=== PATIENT | male | born 1980 ===

== ENCOUNTER 2018-09-28 06:30 | Day surgery (SDC) | payer BC ==
--- NOTE | 2018-09-27 15:03 | PCM.HPR ---
H & P Addendum review - H & P Addendum Review Date of Original H & P: 09/21/18 Date Reviewed: 09/28/18 Time Reviewed: 07:45 Patient was Examined: No Changes
[2018-09-28] MEDS ORDERED: Lactated Ringers 1,000 ML IV SCH (06:45)
[2018-09-28] MEDS ORDERED: Propofol 200 MG/20 ML SDV ONE (06:49)
[2018-09-28] MEDS ORDERED: fentaNYL 250 MCG/5 ML SDV ONE (06:49)
[2018-09-28] MEDS ORDERED: Midazolam 1 MG/ML 2 ML SDV ONE (06:49)
[2018-09-28] MEDS ORDERED: Dexamethasone 4 MG/ML 5 ML MDV ONE ×2 (06:50→06:56)
[2018-09-28] MEDS ORDERED: Ondansetron 4 MG/2 ML SDV ONE ×2 (06:50→06:56)
[2018-09-28] MEDS ORDERED: Rocuronium 10 MG/ML 10 ML Syringe ONE (06:55)
[2018-09-28] MEDS ORDERED: Succinylcholine 200 MG/10 ML MDV ONE (06:55)
--- NOTE | 2018-09-28 07:16 | PCM.PREANE ---
Preanesthetic Assessment - Anesthesia/Transfusion/Family Hx Anesthesia History: Prior Anesthesia Without Reaction Family History of Anesthesia Reaction: No Transfusion History: No Prior Transfusion(s) - Review of Systems General: No Symptoms Pulmonary: No Symptoms (mod FELICITA, uses CPAP) Cardiovascular: No Symptoms Gastrointestinal: No Symptoms Neurological: No Symptoms Other: Reports: None - Physical Assessment O2 Sat by Pulse Oximetry: 95 Respiratory Rate: 16 Vital Signs: Last Vital Signs Temp 98.8 F 09/28/18 07:13 Pulse 75 09/28/18 07:13 Resp 16 09/28/18 07:13 BP 134/79 09/28/18 07:13 Pulse Ox 95 09/28/18 07:13 Height: 5 ft 10 in Weight: 83.915 kg ASA Class: 2 Mental Status: Alert & Oriented x3 Airway Class: Mallampati = 1 Dentition: Reports: Normal Dentition ROM/Head Extension: Full Lungs: Clear to Auscultation, Normal Respiratory Effort Cardiovascular: Regular Rate, Regular Rhythm - Allergies Allergies/Adverse Reactions: Allergies Allergy/AdvReac Type Severity Reaction Status Date / Time cat dander Allergy Sneezing Verified 09/25/18 10:03 dog dander Allergy Sneezing Verified 09/25/18 10:03 Penicillins Allergy Hives Verified 09/25/18 10:03 - Blood Blood Available: No - Anesthesia Plan Pre-Op Medication Ordered: None - Acknowledgements Anesthesia Type Planned: General Anesthesia Pt an Appropriate Candidate for the Planned Anesthesia: Yes Alternatives and Risks of Anesthesia Discussed w Pt/Guardian: Yes Pt/Guardian Understands and Agrees with Anesthesia Plan: Yes PreAnesthesia Questionnaire HEENT History: Reports: Other (See Below) Other HEENT History: hx of fx nose Respiratory History: Reports: Sleep Apnea Other Respiratory History: uses CPAP Musculoskeletal History: Reports: Fracture Other Musculoskeletal History: hx of fx wrist Neurological History: Reports: Concussion - Past Surgical History HEENT Surgical History: Reports: Naso-Sinus Surgery Other HEENT Surgeries/Procedures: Septorhinoplasty - SUBSTANCE USE Smoking Status *Q: Current Every Day Smoker Tobacco Use Within Last Twelve Months: Smokeless Tobacco Recreational Drug Use History: No - HOME MEDS Home Medications: Home Meds . [No Known Home Meds] 09/25/18 [History] - CURRENT (IN HOUSE) MEDS Current Meds: Current Medications Lactated Ringer's (Ringers, Lactated) 1,000 mls @ 125 mls/hr IV ASDIRECTED ELENITA Discontinued Medications Dexamethasone (Dexamethasone) Confirm Administered Dose 20 mg .ROUTE .STK-MED ONE Stop: 09/28/18 06:51 Dexamethasone (Dexamethasone) Confirm Administered Dose 20 mg .ROUTE .STK-MED ONE Stop: 09/28/18 06:57 Fentanyl (Sublimaze) Confirm Administered Dose 250 mcg .ROUTE .STK-MED ONE Stop: 09/28/18 06:50 Lidocaine HCl (Xylocaine-Mpf 1%) Confirm Administered Dose 5 mls @ as directed .ROUTE .ST-MED ONE Stop: 09/28/18 06:51 Midazolam HCl (Versed 1 Mg/Ml) Confirm Administered Dose 2 mg .ROUTE .ST-MED ONE Stop: 09/28/18 06:50 Ondansetron HCl (Zofran) Confirm Administered Dose 4 mg .ROUTE .STK-MED ONE Stop: 09/28/18 06:51 Ondansetron HCl (Zofran) Confirm Administered Dose 4 mg .ROUTE .ST-MED ONE Stop: 09/28/18 06:57 Propofol (Diprivan 20 Ml) Confirm Administered Dose 200 mg .ROUTE .STK-MED ONE Stop: 09/28/18 06:[address] [place] (Zemuron) Confirm Administered Dose 100 mg .ROUTE .STK-MED ONE Stop: 09/28/18 06:56 Succinylcholine Chloride (Quelicin) Confirm Administered Dose 200 mg .ROUTE .STK -MED ONE Stop: 09/28/18 06:56
[2018-09-28] MEDS ORDERED: EPINEPHrine 1 MG/ML SDV ONE (07:24)
[2018-09-28] MEDS ORDERED: Oxymetazoline 0.05% Nasal Spray 15 ML Bottle ONE (07:24)
[2018-09-28] MEDS ORDERED: Lidocaine 2% with EPINEPHrine 1:100,000 20 ML MDV ONE (07:25)
[2018-09-28] MEDS ORDERED: Bupivacaine 0.25%/EPINEPHrine 1:200,000 10 ML SDV ONE (07:49)
[2018-09-28] MEDS ORDERED: Glycopyrrolate 0.2 MG/ML SDV ONE (08:47)
[2018-09-28] MEDS ORDERED: fentaNYL 100 MCG/2 ML SDV IVPUSH PRN (08:57)
[2018-09-28] MEDS ORDERED: Ibuprofen 400 MG Tab PO PRN (10:43)
[2018-09-28] MEDS ORDERED: Acetaminophen 1,000 MG in Premix Bag 1 BAG IV ONE (10:43)
[2018-09-28] MEDS ORDERED: oxyCODONE 5 MG Tab PO PRN (10:43)
--- NOTE | 2018-09-28 11:06 | PCM.POSTAN ---
POST ANESTHESIA ASSESSMENT - MENTAL STATUS Mental Status: Alert, Oriented - RESPIRATORY Respiratory Status: Respiratory Rate WNL, Airway Patent, O2 Saturation Stable - CARDIOVASCULAR CV Status: Pulse Rate WNL - GASTROINTESTINAL GI Status: No Symptoms - PAIN Pain Score: 4 - POST OP HYDRATION Hydration Status: Adequate & Stable - OBSERVATIONS Free Text/Narrative:: no anesthesia problems
--- NOTE | 2018-09-28 11:41 | PCM.OPNOTE ---
- General Post-Op/Procedure Note Date of Surgery/Procedure: 09/28/18 Condition: Good Free Text/Narrative:: Intake & Output 09/27/18 09/28/18 09/28/18 22:59 06:59 14:59 Intake Total 1250 Balance 1250 Diagnosis: Nasal obstruction, deviated nasal septum, elongated uvula, obstructive sleep apnea on CPAP. Procedure: Partial uvulectomy, revision septoplasty Surgeon: Shaylee Sosa MD Anesthesia: Gen. Anesthesiologist: Apoorva Lang CRNA Date of procedure: Indications: Patient presented with the above complaints to my office. On examination he had an elongated uvula and deviated septum predominantly to the left side blocking most of the nasal cavity. Of note the patient has undergone septorhinoplasty in the past for this problem with no relief in nasal obstruction. Risks benefits of the procedure were discussed and he was consented for the surgery today. Findings: Lung gated uvula; Left sided deviated nasal septum; strip of cartilage along the floor missing from previous surgery and also small segment missing approximately 1 cm behind the caudal end of septum. Flaps here were adherent with fibrotic tissue. Left deviation of the perpendicular plate of ethmoid and vomer posteriorly. Adjacent cartilage was also deviated towards the left side. Operation Details: An informed consent was obtained. A time out was performed and the patient was brought back to the operating room. Gen. anesthesia was administered with an endotracheal tube. Patient was appropriately positioned on table. The Mitch Nick mouth gag was inserted and the suspended with Parrish stand. Inferior half of uvula was marked out. 0.25 percent Marcaine with 1 and 100,000 epinephrine was injected at the base of uvula- 1 mL was used. The inferior aspect of uvula was resected with monopolar cautery at a setting of 20 W. Hemostasis was achieved with coagulation. Wound was sutured with 3-0 Vicryl sutures. Bilateral nasal cavities were packed with oxymetazoline 0.05% soaked cottonoid pledgets. The patient was then prepped and draped in a standard fashion. The pledgets were then removed. Nasal septum was infiltrated with 2% lidocaine 1: 100, 000 epinephrine in a standard fashion-a total of 5 mils was used. A right sided angelita-transfixation incision was performed. A right sided mucoperichondrial flap was elevated-dissection was commenced with 2 mm osteotome and further carried out with combination of isai and [place] elevators. Approximately 1 cm posterior to the caudal end of septum fibrotic tissue was encountered. There was also reasonable amount of bleeding from the septal flaps. Further dissection was performed above and below this fibrotic scarred area to posteriorly further free up the mucoperichondrial flap. Missing cartilage as in findings section above was noted. Posteriorly the flap was continued as a muco periosteal flap. With a combination of sharp and blunt dissection on the left with osteotome as above and the isai and [place] elevators left sided mucoperichondrial flaps and mucoperiosteal flaps were similarly dissected off. The area off the fibrotic adherent flaps was left undisturbed. There was deviation of remnant nasal septal cartilage to us the left side. A posterior chondrotomy was performed. 1 cm posterior to the caudal end of septum residual cartilage was excised and removed taking care to leave at least 1 cm of dorsal strut, right up to the junction of the bony cartilage. A prabhakar scissor was used and the perpendicular plate of the ethmoid was removed. The vomer was also removed. Subsequent to this the nasal septum was positioned towards the midline. Flap was intact bilaterally. Inferior aspect of septal cartilage was anchored to nasal spine with 4-0 PDS suture towards the right. Flap incision was sutured with 3-0 Vicryl. Mattress sutures were also performed. Bilateral Cole splints were inserted and secured with 3-0 Prolene sutures to the columella. This concluded the procedure and patient was handed over to anesthesia for recovery IV fluids: Blood loss: 15 ml Blood products: nil Disposition: PACU for recovery Follow up: In 5 days for removal of splints
--- NOTE | 2018-09-28 13:01 | PCM48HPAN ---
Post Anesthesia Note - EVALUATION WITHIN 48HRS OF ANESTHETIC Vital Signs in Normal Range: Yes Patient Participated in Evaluation: Yes Respiratory Function Stable: Yes Airway Patent: Yes Cardiovascular Function Stable: Yes Hydration Status Stable: Yes Pain Control Satisfactory: Yes Nausea and Vomiting Control Satisfactory: Yes Mental Status Recovered: Yes Resp Rate: 13
== END 2018-09-28 13:50 | disposition home or self-care (01) ==
LOC: MW.SDS 06:30
PROVIDERS: ATTEND Otolaryngology
DX: J34.89 Other specified disorders of nose and nasal sinuses (principal); J34.2 Deviated nasal septum; K13.79 Other lesions of oral mucosa; G47.33 Obstructive sleep apnea (adult) (pediatric); Z99.89 Dependence on other enabling machines and devices; F17.290 Nicotine dependence, other tobacco product, uncomplicated; Z88.0 Allergy status to penicillin
CPT/HCPCS: 30520; 42140; A9270; J0131; J0330; J1100; J2250; J2405; J2704; J3010; J3490; J7120; 00160; J0171